=== PATIENT | female | born 1985 | race Caucasian/White ===

== ENCOUNTER 2024-04-17 06:46 | Day surgery (SDC) | payer OTHER ==
[~2024-04-17] VITALS: Ht 158.8 cm; Wt 76.6 kg
[~2024-04-17 06:46] MED LIST: LR 1,000 ML IV SCH; Ondansetron 4 MG/2 ML VIAL IV PRN
[2024-04-17] MEDS ORDERED: Lidocaine PF 2% (20 MG/ML) 5 ML VIAL ONE (06:49)
[2024-04-17] MEDS ORDERED: Glycopyrrolate 0.2 MG/ML 1 ML VIAL ONE (06:49)
[2024-04-17] MEDS ORDERED: EFFEXOR 75M75 MG/TAB PO (06:58)
[2024-04-17] MEDS ORDERED: MIRENA52 MG IY (06:59)
[2024-04-17 07:01] VITALS: BP 121/75; PULSE 67; TEMP 96.8
--- NOTE | 2024-04-17 07:26 | NUR ---
0652 ARRIVAL IN ENDO Patient ambulatory to bay 2 with steady gait, breathing even and unlabored. Pt is alert and oriented, accompanied by her . Consents reviewed and signed by the patient. IV established. LR infusion via gravity at [facility]. Call light in reach. Warm blanket provided.
[2024-04-17 08:45] VITALS: BP 105/50; PULSE 88; TEMP 97.9
[2024-04-17 09:00] VITALS: BP 91/45; PULSE 74
[2024-04-17 09:15] VITALS: BP 106/75; PULSE 72
--- NOTE | 2024-04-17 09:20 | NUR ---
0845: Pt to bay 3 - ambulated from cart to chair with standby assist 0848: pt tolerating po intake well 0915: MD Lynette in room with pt 0920: pt and verbalizes understanding discharge materials 0930: pt escorted out via wheelchair
== END 2024-04-17 09:30 | disposition home or self-care (01) ==
LOC: SDCO 06:46
DX: K21.00 Gastro-esophageal reflux disease with esophagitis, without bleeding (principal); K29.70 Gastritis, unspecified, without bleeding; B96.81 Helicobacter pylori [H. pylori] as the cause of diseases classified elsewhere; R19.7 Diarrhea, unspecified; K59.04 Chronic idiopathic constipation; F17.210 Nicotine dependence, cigarettes, uncomplicated
CPT/HCPCS: J2704; J7120